=== PATIENT | male | born 1975 | race Caucasian/White ===

== ENCOUNTER 2018-07-20 23:37 | Emergency (ER) | payer BC ==
[~2018-07-20] VITALS: Ht 175.3 cm; Wt 83.5 kg
[2018-07-20 23:43] VITALS: Ht 175.3 cm; Wt 83.5 kg
[2018-07-21 00:56] LABS: BASOPHIL % 0.9 % (0-2); PLATELET COUNT 211 x10^3mcL (130-400)
[2018-07-21 00:59] LABS: RED CELL DISTRIBUTION WIDTH 11.4 % (11.5-14.5)
[2018-07-21 01:11] LABS: CALCIUM 8.9 mg/dL (8.5-10.1); CARBON DIOXIDE 26.7 mmol/L (21-32); CHLORIDE SERUM 101 mmol/L (98-107); GFR1 > 60 mL/min; GLUCOSE SERUM 98 mg/dL (74-106); POTASSIUM SERUM 3.7 mmol/L (3.5-5.1); SODIUM SERUM 139 mmol/L (136-145)
[2018-07-21 01:26] LABS: ALBUMIN 4.4 g/dL (3.4-5.0); ALKALINE PHOSPHATASE 78 U/L (46-116); ALT/SGPT 67 U/L (16-63); AST/SGOT 30 U/L (15-37); BILIRUBIN TOTAL 0.97 mg/dL (0.20-1.00); FREE T4 0.78 ng/dL (0.76-1.46); TOTAL PROTEIN, SERUM 7.8 g/dL (6.4-8.2)
[2018-07-21 01:48] LABS: AMPHETAMINE QUAL UR NONE DETECTED (See below)
[2018-07-21 02:08] VITALS: BP 152/97
== END 2018-07-21 03:45 | disposition home or self-care (01) ==
LOC: ED 23:37
PROVIDERS: Emergency Medicine
DX: M54.6 Pain in thoracic spine (principal); M54.5 Low back pain; G89.29 Other chronic pain; G43.909 Migraine, unspecified, not intractable, without status migrainosus
CPT/HCPCS: 36415; 84439; G0480; J7030